=== PATIENT | male | born 1965 | race African-American/Black ===

== ENCOUNTER 2018-09-26 13:54 | Emergency (ER) | payer SELFPAY ==
[~2018-09-26] VITALS: Ht 175.3 cm; Wt 86.0 kg
[2018-09-26 14:03] VITALS: BP 146/90
== END 2018-09-26 16:05 | disposition home or self-care (01) ==
LOC: ER 16:05
DX: M25.561 Pain in right knee (principal); I10 Essential (primary) hypertension; F17.200 Nicotine dependence, unspecified, uncomplicated
CPT/HCPCS: 99282

== ENCOUNTER 2019-04-08 07:41 | Emergency (ER) | payer SELFPAY ==
[~2019-04-08] VITALS: Ht 175.3 cm; Wt 86.0 kg
[2019-04-08] MEDS ORDERED: IBUPROFEN 600MG TABLET PO ONE (08:30)
[2019-04-08 09:46] VITALS: BP 169/100
== END 2019-04-08 09:49 | disposition home or self-care (01) ==
LOC: ER 07:41
DX: M25.532 Pain in left wrist (principal); M77.9 Enthesopathy, unspecified
CPT/HCPCS: 29125; 99283

== ENCOUNTER 2019-08-09 08:11 | Emergency (ER) | payer MEDICAID ==
[~2019-08-09] VITALS: Ht 175.3 cm; Wt 87.0 kg
[2019-08-09 08:25] VITALS: BP 158/100
== END 2019-08-09 08:58 | disposition home or self-care (01) ==
LOC: ER 08:16
DX: M25.562 Pain in left knee (principal); I10 Essential (primary) hypertension; M19.90 Unspecified osteoarthritis, unspecified site; F17.210 Nicotine dependence, cigarettes, uncomplicated
CPT/HCPCS: 99282

== ENCOUNTER 2019-09-04 10:53 | Emergency (ER) | payer MEDICAID ==
[~2019-09-04] VITALS: Ht 175.3 cm; Wt 84.0 kg
[2019-09-04] MEDS ORDERED: IBUPROFEN 600MG TABLET PO ONE (11:45)
[2019-09-04 12:00] VITALS: BP 139/78
== END 2019-09-04 15:49 | disposition home or self-care (01) ==
LOC: ER 15:44
DX: M17.12 Unilateral primary osteoarthritis, left knee (principal); I10 Essential (primary) hypertension; F17.210 Nicotine dependence, cigarettes, uncomplicated; Z71.6 Tobacco abuse counseling
CPT/HCPCS: 73560; 99283; 99406

== ENCOUNTER 2020-05-28 10:38 | Emergency (ER) | payer MEDICAID ==
[~2020-05-28] VITALS: Ht 175.3 cm; Wt 97.5 kg
[2020-05-28 13:15] VITALS: BP 145/92
== END 2020-05-28 13:35 | disposition home or self-care (01) ==
LOC: ER 11:23
DX: M25.561 Pain in right knee (principal); I10 Essential (primary) hypertension
CPT/HCPCS: 99282

== ENCOUNTER 2021-04-06 07:27 | Emergency (ER) | payer MEDICAID ==
[2021-04-06 07:45] VITALS: BP 164/100
[2021-04-06] MEDS ORDERED: ACETAMINOPHEN 325MG TABLET PO ONE (08:15)
[2021-04-06] MEDS ORDERED: IBUP-2029 MT (10:34)
== END 2021-04-06 10:55 | disposition home or self-care (01) ==
LOC: ER 07:27
DX: S52.002A Unspecified fracture of upper end of left ulna, initial encounter for closed fracture (principal); F17.200 Nicotine dependence, unspecified, uncomplicated; I10 Essential (primary) hypertension; Z98.890 Other specified postprocedural states; W19.XXXA Unspecified fall, initial encounter; Y93.89 Activity, other specified; Y92.89 Other specified places as the place of occurrence of the external cause; Y99.8 Other external cause status
CPT/HCPCS: 29505; 73080; 73120; 73562; 99284; A4565

== ENCOUNTER 2021-04-07 08:48 | Emergency (ER) | payer MEDICAID ==
[~2021-04-07] VITALS: Ht 177.8 cm; Wt 83.0 kg
[~2021-04-07 08:48] MED LIST: IBUP-2029 MT
[2021-04-07 09:37] VITALS: BP 145/89
== END 2021-04-07 09:37 | disposition home or self-care (01) ==
LOC: ER 08:48
DX: S00-T88 Injury, poisoning and certain other consequences of external causes (principal); X58.XXXD Exposure to other specified factors, subsequent encounter; I10 Essential (primary) hypertension
CPT/HCPCS: 99281